=== PATIENT | female | born 1980 | race Caucasian/White ===

== ENCOUNTER → 2017-06-17 | Outpatient (CLI) | payer OTHER, MEDICAID ==
--- NOTE | 2017-06-17 17:01 | CT ---
STUDY: CT LUMBAR SPINE WITHOUT CONTRAST HISTORY: Disc disease Comparison: None. Technique: Multiple axial images of the lumbar spine were obtained from the thoracolumbar junction t o the sacrum without the administration of IV contrast. Sagittal and coronal reformats were performe d and reviewed. Findings: Images are degraded by a patient body habitus. There appears to be a defect in the anterior superior endplate of L4, with possible compression defor mity and approximately 6 mm height loss. There is multilevel degenerative disc disease and degenerat ramon endplate change. There is multilevel facet arthropathy. There is narrowing of the central canal at several levels related to posterior osteophyte formation. This seems most prominent at L3/4 as well as L5/S1. There is no significant neural foraminal stenosi s. The surrounding paraspinous soft tissues are normal in appearance. IMPRESSION: 1. Limited examination due to patient body habitus. 2. Possible compression deformity with loss of vertebral body height anteriorly at the L4 level. 3. Multilevel degenerative disc disease and degenerative endplate change. 4. Possible spinal stenosis at several levels. This is incompletely assessed on the current exam. Rigo knight consider myelogram with postmyelogram CT for further evaluation as clinically warranted. Reported By:
== END | disposition home or self-care (01) | DRG 552 ==
LOC: RAD 13:23
PROVIDERS: ATTEND Specialist
DX: M51.37 Other intervertebral disc degeneration, lumbosacral region (principal)
CPT/HCPCS: 72131